=== PATIENT | female | born 1995 | race Two or more races ===

== ENCOUNTER 2022-02-15 18:31 | Inpatient (IN) ==
[2022-02-15] MEDS ORDERED: FAMOTIDINE 20 MG/2 ML VIAL IV PRN (19:30)
[2022-02-15] MEDS ORDERED: METHYLERGONOVINE 0.2 MG/1 ML AMP IM PRN (19:30)
[2022-02-15] MEDS ORDERED: TRANEXAMIC ACID 1,000 MG in SODIUM CHLORIDE 0.9% 100 ML IV PRN (19:30)
[2022-02-15] MEDS ORDERED: miSOPROStoL 200 MCG TABLET RECTAL PRN (19:30)
[2022-02-15] MEDS ORDERED: BUTORPHANOL 1 MG/ML VIAL IV PRN (19:30)
[2022-02-15] MEDS ORDERED: ACETAMINOPHEN 500 MG TABLET PO PRN (19:30)
[2022-02-15] MEDS ORDERED: BUTORPHANOL 2 MG/ML VIAL IV PRN (19:30)
[2022-02-15] MEDS ORDERED: ONDANSETRON 4 MG/2 ML VIAL IV PRN (19:30)
[2022-02-15] MEDS ORDERED: LACTATED RINGERS 500 ML IV PRN (19:30)
[2022-02-15] MEDS ORDERED: LACTATED RINGERS 1,000 ML IV SCH (19:30)
[2022-02-15] MEDS ORDERED: OXYTOCIN/LR 20 UNIT/1,000 ML BAG IV ONE (19:30)
[2022-02-15] MEDS ORDERED: CARBOPROST TROMETHAMINE 250 MCG/ML AMP IM PRN (19:30)
[2022-02-15] MEDS ORDERED: MEPERIDINE 50 MG/1 ML VIAL IV PRN (19:34)
[2022-02-15 19:55] LABS: Basophils % 0.1 % (0.0-0.8); Eosinophils % 0.6 % (0.00-10.9); Hematocrit 34.6 VOL% (35.7-47.0); Hemoglobin 11.5 GM/DL (12.0-16.0); Immature Granulocytes % 0.7 %; Immature Granulocytes Absolute 0.05 #; Lymphocytes # 1.7 10*3/uL (1.4-4.0); Lymphocytes % 24.5 % (21.3-54.2); Mean Corpuscular HGB Conc 33.2 GM/DL (32-36); Mean Corpuscular Volume 85.9 FL (87-102); Mean Platelet Volume 8.7 FL (9.6-12.0); Monocytes # 0.5 10*3/uL (0.11-0.8); Monocytes % 6.6 % (1.7-12.7); Neutrophils % 67.5 % (38.7-73.9); Platelet Count 255 T/CUMM (130-400); Red Blood Count 4.03 MC/CUMM (3.8-5.5); Red Cell Distribution Width 14.1 % (9.3-17.3); White Blood Count 6.8 T/CUMM (4-12)
[2022-02-15 20:11] LABS: Bilirubin,Total 0.7 MG/DL (0.20-1.00); Calcium 8.8 MG/DL (8.5-10.1); Osmolality,Calculated 274.5 MOS/KG (273-304); Potassium 3.6 MMOL/L (3.5-5.1); Total Protein 6.5 G/DL (6.4-8.2)
[2022-02-16] MEDS ORDERED: FAMOTIDINE 20 MG/2 ML VIAL IV ONE (03:12)
[2022-02-16] MEDS ORDERED: hydrOXYzine HCL 25 MG/1 ML VIAL IM PRN (03:12)
[2022-02-16] MEDS ORDERED: ONDANSETRON 4 MG/2 ML VIAL IV PRN ×2 (03:12→04:44)
[2022-02-16] MEDS ORDERED: NALOXONE 0.4 MG/ML VIAL IV PRN (03:12)
[2022-02-16] MEDS ORDERED: PROMETHAZINE 25 MG/1 ML VIAL IM ONE (03:12)
[2022-02-16] MEDS ORDERED: LACTATED RINGERS 1,000 ML IV ONE (03:12)
[2022-02-16] MEDS ORDERED: ePHEDrine 50 MG/ML VIAL IV PRN (03:12)
[2022-02-16] MEDS ORDERED: diphenhydrAMINE 50 MG/1 ML VIAL IV PRN ×2 (03:12)
[2022-02-16] MEDS ORDERED: CITRIC ACID/SODIUM CITRATE 30 ML UDCUP PO ONE (03:12)
[2022-02-16] MEDS ORDERED: fentaNYL 2 MCG/ROPIV 0.2% EPID 100 ML EPIDURAL SCH (03:30)
[2022-02-16] MEDS ORDERED: LACTATED RINGERS 1,000 ML IV SCH (03:30)
[2022-02-16] MEDS ORDERED: CITRIC ACID/SODIUM CITRATE 30 ML UDCUP ONE (03:37)
[2022-02-16] MEDS ORDERED: ePHEDrine 50 MG/ML VIAL ONE (03:38)
[2022-02-16] MEDS ORDERED: OXYTOCIN/LR 20 UNIT/1,000 ML BAG IV ONE ×2 (03:57→04:44)
[2022-02-16 04:27] LABS: Cord Venous Blood HCO3 19.5 MMOL/L; Cord Venous Blood PO2 37.4
[2022-02-16] MEDS ORDERED: DIPH/TET/ACEL PERT BOOSTER VACCINE 0.5 ML VIAL IM ONE (04:44)
[2022-02-16] MEDS ORDERED: BENZOCAINE 20%/MENTHOL 0.5% SPRAY 56 GM CAN TOP PRN (04:44)
[2022-02-16] MEDS ORDERED: LANOLIN 50% CREAM 0.3 OZ TUBE TOP PRN (04:44)
[2022-02-16] MEDS ORDERED: oxyCODONE/ACETAMINOPHEN 5-325 MG TABLET PO PRN ×2 (04:44)
[2022-02-16] MEDS ORDERED: ACETAMINOPHEN 325 MG TABLET PO PRN (04:44)
[2022-02-16] MEDS ORDERED: IBUPROFEN 800 MG TABLET PO PRN (04:44)
[2022-02-16] MEDS ORDERED: MEASLES/MUMPS/RUBELLA VACCINE 0.5 ML VIAL SUBCUT ONE (04:44)
[2022-02-16] MEDS ORDERED: RHO(D) IMMUNE GLOBULIN 300 MCG SYRINGE IM ONE (04:44)
[2022-02-16] MEDS ORDERED: BISACODYL 10 MG SUPP RECTAL PRN (04:44)
[2022-02-16] MEDS ORDERED: WITCH HAZEL PADS 100/JAR TOP PRN (04:44)
[2022-02-16] MEDS ORDERED: HYDROCORTISONE 2.5% RECTAL CREAM 30 GM TUBE TOP PRN (04:44)
[2022-02-16] MEDS: DOCUSATE SODIUM 100 MG CAPSULE PO SCH ×2 (08:42→21:47)
[2022-02-17 04:27] LABS: Basophils % 0.3 % (0.0-0.8); Eosinophils # 0.1 10*3/uL (0.0-0.87); Eosinophils % 0.6 % (0.00-10.9); Hematocrit 32.4 VOL% (35.7-47.0); Hemoglobin 10.6 GM/DL (12.0-16.0); Immature Granulocytes % 0.6 %; Immature Granulocytes Absolute 0.05 #; Lymphocytes # 2.2 10*3/uL (1.4-4.0); Lymphocytes % 28.4 % (21.3-54.2); Mean Corpuscular HGB Conc 32.7 GM/DL (32-36); Mean Corpuscular Volume 86.2 FL (87-102); Mean Platelet Volume 9.3 FL (9.6-12.0); Monocytes # 0.5 10*3/uL (0.11-0.8); Monocytes % 6.5 % (1.7-12.7); Neutrophils % 63.6 % (38.7-73.9); Platelet Count 225 T/CUMM (130-400); Red Blood Count 3.76 MC/CUMM (3.8-5.5); Red Cell Distribution Width 14.1 % (9.3-17.3); White Blood Count 7.9 T/CUMM (4-12)
[2022-02-17] MEDS: DOCUSATE SODIUM 100 MG CAPSULE PO SCH ×2 (08:36→21:40)
[2022-02-18 07:33] VITALS: BP 95/54
== END 2022-02-18 12:47 | disposition home or self-care (01) | DRG 807 ==
LOC: N.LDOUT 18:31 → N.LD 18:39 → N.OB 02-16 07:59
PROVIDERS: ADMIT Obstetrics & Gynecology; ATTEND Obstetrics & Gynecology